=== PATIENT | male | born 1970 | race Caucasian/White ===

== ENCOUNTER 2018-05-06 20:10 | Emergency (ER) | payer OTHER ==
[~2018-05-06] VITALS: Ht 167.6 cm; Wt 86.2 kg
[~2018-05-06 20:10] MED LIST: ALDACTONE25 MG PO; ASPIR 8181 MG PO; FUROSEMIDE40 MG PO; LAC30L PO; LANTUS100 U/ML SC; NEOMYCIN SULFA500 MG PO; NOVOLOG100 U/ML SC; NUCYNTA100 M1 PO; PENTOXIFYL XR400 M1 PO; PROPRANOLOL HCL20 MG PO
[2018-05-06 20:19] VITALS: BP 140/88
== END 2018-05-06 22:04 | disposition home or self-care (01) ==
LOC: ED 20:10
DX: M25.531 Pain in right wrist (principal); E11.9 Type 2 diabetes mellitus without complications; Z94.4 Liver transplant status; V00.121A Fall from non-in-line roller-skates, initial encounter; Y93.51 Activity, roller skating (inline) and skateboarding; Y92.89 Other specified places as the place of occurrence of the external cause; Y99.8 Other external cause status
CPT/HCPCS: J1885